=== PATIENT | female | born 1975 | race African-American/Black ===

== ENCOUNTER 2016-08-18 12:43 | Emergency (ER) | payer SELFPAY ==
[2016-08-18 12:51] VITALS: BP 128/56
--- NOTE | 2016-08-18 13:17 | ER Document Report ---
ED Medical Screen (RME) - General TRAVEL OUTSIDE OF THE [place] IN LAST 30 DAYS: No <KAYLEIGH FORBES - Last Filed: 08/18/16 13:13> <COURTNEY SCHMITZ - Last Filed: 08/25/16 10:56> - General Stated Complaint: HAND/FEET PAIN Notes: 41 yo female c/o pain and numbness to both hands and feet x 3 weeks. taking calcium supplements, increasing potassium in diet but no improvement. no hx/o HTN, DM. + smoker no edema noted. hands warm, + radial pulses (KAYLEIGH FORBES) - Related Data Allergies/Adverse Reactions: No Known Allergies Allergy (Verified 08/18/16 13:12) Past Medical History - Past Medical History Cardiac Medical History: Reports: Hx Hypertension - up/down Pulmonary Medical History: Denies: Hx Tuberculosis Neurological Medical History: GI Medical History: Reports: Hx Gastroesophageal Reflux Disease - only when Traumatic Medical History: Reports: Hx Fractures - right arm Past Surgical History: Reports: Hx Cholecystectomy. Denies: Hx Pacemaker - Immunizations Hx Diphtheria, Pertussis, Tetanus Vaccination: Yes - < 5 yr <KAYLEIGH FOBRES - Last Filed: 08/18/16 13:13> Course - Laboratory Result Diagrams: 08/18/16 13:20 08/18/16 13:20 <COURTNEY SCHMITZ - Last Filed: 08/25/16 10:56> - Vital Signs Vital signs: Temp Pulse Resp BP Pulse Ox 98.4 F 98 20 128/56 H 97 08/18/16 12:49 08/18/16 12:49 08/18/16 12:49 08/18/16 12:49 08/18/16 12:49 - Laboratory Laboratory results interpreted by me: 08/18/16 08/18/16 13:20 13:20 RDW 16.6 H Lymphocytes % 46.7 H Chloride 109 H BUN 6 L Doctor's Discharge <KAYLEIGH FORBES - Last Filed: 08/18/16 13:13> <COURTNEY SCHMITZ - Last Filed: 08/25/16 10:56> - Discharge Clinical Impression: bilateral hand and foot pain Condition: Stable Disposition: HOME, SELF-CARE Additional Instructions: Your symptoms might be due to neuropathy. Neuropathy is nerve damage. There are many causes, including diabetes, immune disease, alcohol, blood vessel disease, and vitamin deficiency. The usual symptoms are pain and numbness. Neuropathy can occur anywhere, but it's most likely in the "longest" nerves. That's why the feet are most often affected. Sometimes the nerve damage can heal. But if the symptoms have lasted more than a few months, the damage is permanent. To avoid further damage, treat your underlying health problems carefully. If you have diabetes, keep the blood sugar as normal as possible. Avoid alcohol. Treat high blood pressure and high cholesterol. Treating chronic pain can be a problem. Obviously, you don't want to become addicted to pain medicine. Work closely with your doctor on pain management. Your options include antiinflammatory medicine, anti seizure medicine, antidepressants, and pain clinic management. Contact the doctor if there is a significant change. You have bilateral hand and foot pain which doesn't have an exact cause currently on she to follow up with the primary care physician who will do additional outpatient testing and referred to a neurologist currently I see no evidence of a stroke. She nerve or neurovascular deficit return to the emergency department for increasing worsening or new symptoms Forms: Parent Work Note, Return to Work Referrals: [facility] [Provider Group] - Follow up in 3-5 days (Call in a.m. to be seen in 2-3 days return for increasing worsening or new symptoms)
[2016-08-18 13:47] LABS: ABSOLUTE EOSINOPHILS # (AUTO) 0.1 10^3/uL (0.0-0.6); ABSOLUTE LYMPHOCYTES (AUTO) 2.5 10^3/uL (0.5-4.7); ABSOLUTE MONOCYTES (AUTO) 0.3 10^3/uL (0.1-1.4); ABSOLUTE NEUT (AUTO) 2.4 10^3/uL (1.7-8.2); BASOPHILS % (AUTO) 0.8 % (0-2); EOSINOPHILS % (AUTO) 1.3 % (0-6); HEMOGLOBIN 13.9 g/dL (12.0-15.5); HGB HCT DIFFERENCE -1.3; LYMPHOCYTES % (AUTO) 46.7 % (13-45); MEAN CORPUSCULAR HEMOGLOBIN 27.2 pg (27.0-33.4); MEAN CORPUSCULAR HGB CONC 32.2 g/dL (32.0-36.0); MEAN CORPUSCULAR VOLUME 84 fl (80-97); MONOCYTES % (AUTO) 6.5 % (3-13); RED CELL DISTRIBUTION WIDTH 16.6 % (11.5-14.0); SEGMENTED NEUTROPHILS % (AUTO) 44.7 % (42-78); WHITE BLOOD COUNT 5.3 10^3/uL (4.0-10.5)
[2016-08-18 14:05] LABS: ALANINE AMINOTRANSFERASE 25 U/L (9-52); ALBUMIN 4.1 g/dL (3.5-5.0); ALKALINE PHOSPHATASE 54 U/L (38-126); ANION GAP 8 (5-19); ASPARTATE AMINO TRANSFERASE 17 U/L (14-36); BILIRUBIN,TOTAL 0.5 mg/dL (0.2-1.3); BLOOD UREA NITROGEN 6 mg/dL (7-20); CALCIUM 9.3 mg/dL (8.4-10.2); CARBON DIOXIDE 22 mmol/L (22-30); CHLORIDE 109 mmol/L (98-107); CREATININE RESULT 0.88 mg/dL (0.52-1.25); GLUCOSE 105 mg/dL (75-110); POTASSIUM 4.4 mmol/L (3.6-5.0); SODIUM 139.2 mmol/L (137-145)
--- NOTE | 2016-08-18 15:34 | ER Document Report ---
ED General - General Mode of Arrival: Ambulatory Information source: Patient TRAVEL OUTSIDE OF THE [place] IN LAST 30 DAYS: No - HPI Patient complains to provider of: Bilateral hand and feet numbness, tingling, and pain Onset: This morning Onset/Duration: Sudden Associated symptoms: Other - see above <SHIN FARIAS - Last Filed: 08/18/16 18:32> <COURTNEY SCHMITZ - Last Filed: 09/03/16 04:39> - General Chief Complaint: Hand Pain Stated Complaint: HAND/FEET PAIN Notes: 41 year old female with no history of diabetes presents to the ED complaining of bilateral hand and feet pain, numbness, and tingling that started suddenly this morning. Patient reports that she also has a knot on her left palm which is causing her discomfort. Patient explains that the pain is muscular and not bony in nature. Patient denies any exposure to heavy metals or ticks. Patient denies blurry vision or double vision. (SHIN FARIAS) - Related Data Allergies/Adverse Reactions: No Known Allergies Allergy (Verified 08/18/16 13:12) Past Medical History - General Information source: Patient - Social History Smoking Status: Current Every Day Smoker Chew tobacco use (# tins/day): Yes Family History: Hypertension, Other - mom with renal failure on dialysis Patient has suicidal ideation: No Patient has homicidal ideation: No - Past Medical History Cardiac Medical History: Reports: Hx Hypertension - up/down Neurological Medical History: Renal/ Medical History: Denies: Hx Peritoneal Dialysis GI Medical History: Reports: Hx Gastroesophageal Reflux Disease - only when Traumatic Medical History: Reports: Hx Fractures - right arm Past Surgical History: Reports: Hx Cholecystectomy - Immunizations Hx Diphtheria, Pertussis, Tetanus Vaccination: Yes - < 5 yr <SHIN FARIAS - Last Filed: 08/18/16 18:32> Review of Systems - Review of Systems Constitutional: No symptoms reported EENT: No symptoms reported Cardiovascular: No symptoms reported Respiratory: No symptoms reported Gastrointestinal: No symptoms reported Genitourinary: No symptoms reported Female Genitourinary: No symptoms reported Musculoskeletal: See HPI, Other - Bilateral hand and feet pain. Painful "knot" to the left thumb. Skin: No symptoms reported Hematologic/Lymphatic: No symptoms reported Neurological/Psychological: See HPI, Numbness - hand and feet, Tingling - hands and feet -: Yes All other systems reviewed and negative <SHIN FARIAS - Last Filed: 08/18/16 18:32> Physical Exam - Vital signs Interpretation: Normal - General General appearance: Alert In distress: None - HEENT Head: Normocephalic, Atraumatic Eyes: Normal Extraocular movements intact: Yes Pupils: PERRL - Respiratory Respiratory status: No respiratory distress Breath sounds: Normal - Cardiovascular Rhythm: Regular Heart sounds: Normal auscultation Pulses: Normal: Femoral, Popliteal, Posterior tibial, Dorsalis pedis Normal capillary refill: Yes - Abdominal Inspection: Normal Distension: No distension Tenderness: Nontender - Back Back: Normal - Extremities General upper extremity: Normal inspection, Nontender - no generalized joint pain, Normal color, Normal ROM General lower extremity: Normal inspection, Nontender - no generalized joint pain, Normal color, Normal ROM - Neurological Neuro grossly intact: Yes Cognition: Normal Orientation: AAOx4 Barry Coma Scale Eye Opening: Spontaneous Barry Coma Scale Verbal: Oriented Madhuri Coma Scale Motor: Obeys Commands Madhuri Coma Scale Total: 15 Speech: Normal - Psychological Associated symptoms: Normal affect, Normal mood - Skin Skin Temperature: Warm Skin Moisture: Dry Skin Color: Normal <SHIN FARIAS - Last Filed: 08/18/16 18:32> Course - Laboratory Result Diagrams: 08/18/16 13:20 08/18/16 13:20 <SHIN FARIAS - Last Filed: 08/18/16 18:32> - Laboratory Result Diagrams: 08/18/16 13:20 08/18/16 13:20 <COURTNEY SCHMITZ - Last Filed: 09/03/16 04:39> - Re-evaluation Re-evalutation: 08/18/16 15:40 I personally performed the services described in the documentation, reviewed and edited the documentation which was dictated to my scribe in my presence, and it accurately records my words and actions. Patient presents emergency department 3-4 week history of bilateral hand and feet pain says she just woke up with it one morning she never saw a primary care physician denies any injury or history of same she hasn't seen a doctor since she was a teenager except for [employer]. Denies any heavy metal poisoning no Lyme's disease or neurological disorders no immune compromise or neurological disorders in the family. No headaches blurred vision double vision or strokelike symptoms she said it's intermittent her hands burn her feet burn. He is not her joints not her elbows not her wrists not her knees not her shoulders. No chest pain shortness breath cough nausea via dull pain diarrhea or weight loss. I think she has some variant of a peripheral neuropathy which could include a multitude of things. I'm giving her family doctor to follow up with that she will need outpatient testing including heavy metal poisoning and probably referral to a neurologist. Basic labs here are negative. Told her call the clinic tomorrow to be seen in 2-3 days and discussed reasons Filomena return sooner (COURTNEY SCHMITZ) - Vital Signs Vital signs: Temp Pulse Resp BP Pulse Ox 98.4 F 98 20 128/56 H 97 08/18/16 12:49 08/18/16 12:49 08/18/16 12:49 08/18/16 12:49 08/18/16 12:49 - Laboratory Laboratory results interpreted by me: 08/18/16 08/18/16 13:20 13:20 RDW 16.6 H Lymphocytes % 46.7 H Chloride 109 H BUN 6 L Discharge <SHIN FARIAS - Last Filed: 08/18/16 18:32> <COURTNEY SCHMITZ - Last Filed: 09/03/16 04:39> - Discharge Clinical Impression: bilateral hand and foot pain Condition: Stable Disposition: HOME, SELF-CARE Additional Instructions: Your symptoms might be due to neuropathy. Neuropathy is nerve damage. There are many causes, including diabetes, immune disease, alcohol, blood vessel disease, and vitamin deficiency. The usual symptoms are pain and numbness. Neuropathy can occur anywhere, but it's most likely in the "longest" nerves. That's why the feet are most often affected. Sometimes the nerve damage can heal. But if the symptoms have lasted more than a few months, the damage is permanent. To avoid further damage, treat your underlying health problems carefully. If you have diabetes, keep the blood sugar as normal as possible. Avoid alcohol. Treat high blood pressure and high cholesterol. Treating chronic pain can be a problem. Obviously, you don't want to become addicted to pain medicine. Work closely with your doctor on pain management. Your options include antiinflammatory medicine, anti seizure medicine, antidepressants, and pain clinic management. Contact the doctor if there is a significant change. You have bilateral hand and foot pain which doesn't have an exact cause currently on she to follow up with the primary care physician who will do additional outpatient testing and referred to a neurologist currently I see no evidence of a stroke. She nerve or neurovascular deficit return to the emergency department for increasing worsening or new symptoms Forms: Parent Work Note, Return to Work Referrals: [facility] [Provider Group] - Follow up in 3-5 days (Call in a.m. to be seen in 2-3 days return for increasing worsening or new symptoms) Scribe Documentation - Scribe Written by Reji:: Reji Roman, 08/18/2016 [id number] acting as scribe for :: Bean <SHIN FARIAS - Last Filed: 08/18/16 18:32>
== END 2016-08-18 13:30 | disposition home or self-care (01) ==
LOC: ER 12:43
DX: M79.1 Myalgia (principal); R22.32 Localized swelling, mass and lump, left upper limb; R20.0 Anesthesia of skin; R20.2 Paresthesia of skin; F17.200 Nicotine dependence, unspecified, uncomplicated; I10 Essential (primary) hypertension
CPT/HCPCS: 36415; 80053; 85025; 99283

== ENCOUNTER 2019-12-02 10:35 | Emergency (ER) | payer SELFPAY ==
[2019-12-02 10:41] VITALS: BP 139/67
[2019-12-02] MEDS ORDERED: IBUPROFEN 800 MG TABLET PO ONE (11:34)
--- NOTE | 2019-12-02 11:40 | ER Document Report ---
HPI - HPI Patient complains to provider of: Right elbow pain Time Seen by Provider: 12/02/19 11:28 Onset: Other - 4 days Onset/Duration: Persistent Quality of pain: Achy Pain Level: 2 Context: Patient presents complaining of right elbow pain for the past 4 days. Patient denies any recent trauma although states that she did fracture and dislocate the elbow as a child. Patient is right-hand dominant and reports increased activity at work recently. Patient denies any fever. Associated Symptoms: Other - Right elbow pain Exacerbated by: Movement Relieved by: Denies Similar symptoms previously: No Recently seen / treated by doctor: No - ROS ROS below otherwise negative: Yes Systems Reviewed and Negative: Yes All other systems reviewed and negative - CONSTITUTIONAL Constitutional: DENIES: Fever, Chills - NEURO Neurology: DENIES: Weakness - GASTROINTESTINAL Gastrointestinal: DENIES: Nausea - REPRODUCTIVE Reproductive: DENIES: : - MUSCULOSKELETAL Musculoskeletal: REPORTS: Extremity pain - DERM Skin Color: Normal Skin Problems: None Past Medical History - General Information source: Patient - Social History Smoking Status: Current Every Day Smoker Frequency of alcohol use: None Drug Abuse: None 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 Denies: Hx Pacemaker - Immunizations Hx Diphtheria, Pertussis, Tetanus Vaccination: Yes - < 5 yr Vertical Provider Document - CONSTITUTIONAL Agree With Documented VS: Yes Exam Limitations: No Limitations General Appearance: WD/WN, No Apparent Distress - INFECTION CONTROL TRAVEL OUTSIDE OF THE [place] IN LAST 30 DAYS: No - HEENT HEENT: Atraumatic, Normocephalic - NECK Neck: Normal Inspection, Supple. negative: Lymphadenopathy-Left, Lymphadeno mike-Right - RESPIRATORY Respiratory: Breath Sounds Normal, No Respiratory Distress - CARDIOVASCULAR Cardiovascular: Regular Rate, Regular Rhythm Pulses: Normal: Radial - BACK Back: Normal Inspection - MUSCULOSKELETAL/EXTREMETIES Musculoskeletal/Extremeties: MAEW, FROM, Tender - Right elbow tenderness over medial lateral epicondyle and over olecranon process, no obvious edema, no calor, patient with full range of motion - NEURO Level of Consciousness: Awake, Alert, Appropriate Motor/Sensory: No Motor Deficit, No Sensory Deficit - DERM Integumentary: Warm, Dry, No Rash Course - Re-evaluation Re-evalutation: 12/02/19 12:27 X-ray reviewed, no concern for fracture, no obvious retained hardware therefore no concern for hardware failure. No calor or erythema to the joint, no concern for any septic arthritis at this time. Suspect likely overuse injury. Will immobilize and encourage outpatient follow-up with orthopedics for further evaluation. - Vital Signs Vital signs: Temp Pulse Resp BP Pulse Ox 98.6 F 83 16 139/67 H 100 12/02/19 10:39 12/02/19 10:39 12/02/19 10:39 12/02/19 10:39 12/02/19 10:39 - Diagnostic Test Radiology reviewed: Image reviewed, Reports reviewed Procedures - Immobilization Right Elbow Pre-Proc Neuro Vasc Exam: Normal Immobilizer type: Hiram wrap Performed by: RN Post-Proc Neuro Vasc Exam: Normal Alignment checked and good: Yes Discharge - Discharge Clinical Impression: Right elbow pain, Tendinitis Condition: Stable Disposition: HOME, SELF-CARE Instructions: Hiram Wrap ([facility]), Anti-Inflammatory Medication ([facility]), Overuse Syndrome ([facility]), Tendonitis ([facility]) Additional Instructions: Return immediately for any new or worsening symptoms Followup with your primary care provider, call tomorrow to make a followup appointment Limit repetitive activities using the right arm Follow up with orthopedics for further evaluation, call Tuesday for an appointment Prescriptions: Naproxen [Naprosyn 250 Nmg Tablet] 1 tab PO BID #14 tablet Hydrocodone/Acetaminophen [[place] 5-325 mg Tablet] 1 tab PO Q6 PRN #10 tablet PRN Reason: Forms: Return to Work Referrals: [facility] [Provider Group] - Follow up as needed [facility] [Provider Group] - 12/03/19
--- NOTE | 2019-12-02 12:17 | RADIOLOGY REPORT (SQ) ---
EXAM DESCRIPTION: ELBOW RIGHT OVER 2 VIEWS IMAGES COMPLETED DATE/TIME: 12/02/2019 11:58 am REASON FOR STUDY: r elbow pain, hx prev disloc/fx COMPARISON: None. NUMBER OF VIEWS: Four views. TECHNIQUE: AP, lateral, and both oblique radiographic images acquired of the right elbow. LIMITATIONS: None. FINDINGS: MINERALIZATION: Normal. BONES: No acute fracture or dislocation. JOINT: No effusion. SOFT TISSUES: No soft tissue swelling. No radiopaque foreign body. IMPRESSION: No radiographic evidence for acute fracture at the right elbow. TECHNICAL DOCUMENTATION: JOB ID: [id number] [employer]- All Rights Reserved Reading location - IP/workstation name: [email or web address]
== END 2019-12-02 12:52 | disposition home or self-care (01) ==
LOC: ER 10:35
DX: M25.521 Pain in right elbow (principal); M77.9 Enthesopathy, unspecified; M79.601 Pain in right arm; F17.200 Nicotine dependence, unspecified, uncomplicated
CPT/HCPCS: 99283